=== PATIENT | female | born 1985 | race Hispanic/Latino ===

== ENCOUNTER 2017-11-14 16:22 | Inpatient (IN) | payer MEDICAID, SELFPAY ==
[2017-11-14] MEDS ORDERED: Docusate 100 MG CAP PO PRN (18:23)
[2017-11-14] MEDS ORDERED: Acetaminophen 325 MG TAB PO PRN (18:23)
[2017-11-14] MEDS ORDERED: Ondansetron ODT 4 MG TAB SL PRN (18:23)
[2017-11-14] MEDS ORDERED: Dextrose 5% in Water 1,000 ML IV PRN (18:23)
[2017-11-14] MEDS ORDERED: Dextrose 50% Abboject 50 ML SYRINGE SLOW IVP PRN (18:23)
[2017-11-14 19:02] LABS: Hemoglobin A1c 5.6 % (4.0-6.0)
[2017-11-14 19:20] LABS: ALT (SGPT) 35 U/L (8-55); AST (SGOT) 25 U/L (5-34); Albumin 3.1 g/dL (3.5-5.0); Alkaline Phosphatase 306 U/L (40-150); Anion Gap 9 mmol/L (10-20); BUN (Urea Nitrogen) 8 mg/dL (7.0-18.7); Bilirubin, Total 0.2 mg/dL (0.2-1.2); Calc. Creatinine Clearance 0 mL/min (70-130); Calcium 8.1 mg/dL (7.8-10.44); Carbon Dioxide 19 mmol/L (22-29); Chloride 111 mmol/L (98-107); Estimated GFR-MDRD Greater than 90; Globulin 3.2 g/dL (2.4-3.5); Glucose 92 mg/dL (70-105); Potassium 3.4 mmol/L (3.5-5.1); Protein, Total 6.3 g/dL (6.0-8.3); Sodium 136 mmol/L (136-145)
[2017-11-14 19:47] LABS: Band 8 % (5-11); Eosinophils 1 % (0-10); Hemoglobin 13.6 g/dL (12.0-16.0); Lymphocytes 4 % (21-51); MDiff Complete? YES; Mean Corpuscular HGB CONC 33.3 g/dL (32.0-36.0); Mean Corpuscular Hemoglobin 27.6 pg (27.0-31.0); Monocytes 2 % (0-10); Neutrophil 84 % (42-75); PLT Morphology Comment Appears Adequate; Platelet Count 272 thou/uL (130-400); Reactive Lymphocytes 1 % (0-10); Red Blood Cell (RBC) Count 4.92 mill/uL (4.20-5.40); White Blood Cell (WBC) Count 9.3 thou/uL (4.8-10.8)
--- NOTE | 2017-11-14 19:58 | PDOC.LDHP ---
Labor and Delivery H&P Chief complaint: other (Elevated glucoses at clinic) HPI: 32 yo @ 35.6 wks by LMP/17.2 wk US presents due to elevated BG's @ clinic and concern that she did not understand how to correctly use her glucometer at home. Patient states that she was pricking her finger and squeezing out the blood onto the strip but that the machine would never give her a reading. She did not know until her appointment this morning at [facility] that she was doing it incorrectly. Patient was thus sent over due to concern for uncontrolled gDM, further education, and possible medication titration. She states that she was diagnosed with gDM one month ago. Has not been started on any medication so far. Has not had gDM in any prior pregnancies. +FM. Denies any symptoms of diabetes such as increased urinary frequency, paresthesias, or vision changes. No ctx, VB, or LOF. Due date: 12/13/17 Dating criteria: last menstrual period (C/W 17.2 WK US) Grav: 3 Para: 2 OB History Details: Previous 2 pregnancies had no issues per patient and culminated in normal spontaneous vaginal deliveries w/o complications. Both births took place in [facility]. Both children are healthy without medical problems. Current complications: gestational diabetes Abnormal US findings: No Past Medical History: None Current medications: pre-rivka vitamins Previous surgical history: other Social history: none, other ( but lives in [facility]. No family history of diabetes, other chronic medical issues, or any genetic problems.) - Physical Exam Vital signs reviewed and normal: yes (WNL) General: NAD, resting Heart: RRR Lungs: nonlabored breathing Abdomen: NTTP Extremeties: normal range of motion - OB Labs Blood type: O RH: positive Antibody Screen: negative HIV: negative RPR: negative HEPSAg: negative 1 hour GCT: positive 3 hour GTT: positive GBS: unknown Urine drug screen: not done Rubella: immune - Plan -: 32 yo @ 35.6 wks by LMP/17.2 wk US w/: 1) Concern for uncontrolled gestational diabetes mellitus -Admit to -Will monitor qid (fasting + 2hr postprandial) blood glucoses carefully during in-patient setting for further White classification and decision regarding starting oral antihyperglycemics v. insulin -A1c pending -Carb-control diet -Baseline CBC, CMP, and UPC obtained -BPP and growth US ordered -Further education regarding disease process, diet/lifestyle changes, as well as use of glucose monitoring equipment at home 2) PTSIUP -Will contact [facility] tmrw to verify GBS status -H/o complete placenta previa with documented resolution on 3T US -NSTs qshift -Further decision on final delivery timing pending the outcome of this hospitalization and degree of patient compliance after discharge <Madi Arevalo - Last Filed: 11/14/17 19:54> <Christine Beltran - Last Filed: 11/14/17 20:57> Allergies/Adverse Reactions: Allergies Allergy/AdvReac Type Severity Reaction Status Date / Time No Known Allergies Allergy Unverified 11/14/17 20:10 Attending Addendum - Attending Addendum I personally evaluated the patient and discussed the management with Dr. Arevalo I agree with the History, Examination, Assessment and Plan documented above with any addition or exceptions noted below. 32 yo female at 35.6 wks by LMP/17.2 wk sono admitted for diabetes management in . 1. sIUP: IOB labs reviewed. Anatomy reviewed. Failed 1 hour and 3 hour gtt. 3T negative. Flu/Tdap given. Needs GBS. 2. A1GDM: Unsure if controlled on diet and exercise. Patient not monitoring glucose at home. Labs ordered. Growth and BPP/NST added. Will trend glucose readings. Discuss medication as needed. DM education ordered. 3. Placenta previa: Resolved. No vasa previa. Dispo: Obs. Monitor glucose. Evaluate fetus. Education. ABrayMD <Christine Beltran - Last Filed: 11/14/17 20:57>
--- NOTE | 2017-11-14 23:01 | ULT ---
LIMITED OBSTETRICAL ULTRASOUND BIOPHYSICAL PROFILE: Date: 11-14-17 History: Evaluate growth. Technique: Multiplanar grayscale sonographic imaging of the gravid uterus obtained. FINDINGS: A single intrauterine gestation is present demonstrating a vertex presentation. heart rate is 1 41 beats/minute. Region of kidneys and stomach appears grossly unremarkable. urinary blad kevin and umbilical cord appear within normal limits. anatomy cannot be fully evaluated on this e xamination secondary to gestational age. Placenta is located to the left, demonstrating no evidence f or previa or abruption. Amniotic fluid index is 7.9 cm. biometry: BPD 8.6 cm 34 weeks 5 days HC 32.0 cm 36 weeks 0 days AC 31.4 cm 35 weeks 2 days FL 6.6 cm 34 weeks 0 days Average age based on ultrasound is 35 weeks 1 days with an estimated date of delivery on 12-18-17. Estimated weight is 2569 grams +/- 380 grams. biophysical profile: tone, breathing, movement, and amniotic fluid was scored 2 out 2 by the lining machine tender . IMPRESSION: Single intrauterine gestation as detailed above. 05/03 biophysical profile. heart rate is 141 saurabh ts/minute. Amniotic fluid index is 7.9 cm. POS: [facility]
[2017-11-14 23:26] LABS: Creatinine, Urine 44.76 mg/dL (47-110); Protein, Urine Random Quant Less than 10 mg/dL
--- NOTE | 2017-11-15 09:01 | PDOC.FM ---
- Subjective Subjective: 32 yo @ 36 weeks here for GDM control. pt was reportedly using her glucometer incorrectly. Since she has been here her blood glucose has been excellent on a consistent carb diet. Shed enies headache, cp, sob, nvdc and abdominal pain. She states she has been compliant with her diet at home but was having difficulties with her glucometer. She reports she is now able to use her glucometer. - Objective Vital Signs & Weight: Vital Signs (12 hours) Temp Pulse Resp BP 11/15/17 08:19 98.8 F 80 20 90/54 L 11/15/17 06:00 98.6 F 79 18 92/53 L Result Diagrams: 11/14/17 18:41 11/14/17 18:41 <Filemon Castle - Last Filed: 11/15/17 09:01> - Objective Vital Signs & Weight: Vital Signs (12 hours) Temp Pulse Resp BP 11/16/17 08:00 98.7 F 78 18 11/16/17 07:58 98.7 F 78 18 91/63 Weight Weight 138 g Result Diagrams: 11/14/17 18:41 11/14/17 18:41 <Kamilah Avila - Last Filed: 11/16/17 12:59> Phys Exam - Physical Examination Constitutional: NAD HEENT: PERRLA, sclera anicteric Neck: no JVD Respiratory: no wheezing, no rales, no rhonchi, clear to auscultation bilateral Cardiovascular: RRR, no significant murmur, no rub Gastrointestinal: soft, non-tender, no distention, positive bowel sounds gravid Musculoskeletal: no edema, pulses present Neurological: non-focal, moves all 4 limbs Skin: no rash <Filemon Castle - Last Filed: 11/15/17 09:01> Dx/Plan (1) Gestational diabetes mellitus (GDM) Code(s): O24.419 - GESTATIONAL DIABETES MELLITUS IN , UNSP CONTROL Status: Acute - Plan Plan: pt educated on use of glucometer and states she has been compliant with diet at home continue accuchecks achs and post pradial consistent carb diet glucose checks thus far ok, will likely be ok with diet control continue to monitor throughout day <Filemon Castle - Last Filed: 11/15/17 09:01> Attending Addendum - Attending Addendum Date/Time: 11/16/17 1257 I personally evaluated the patient and discussed the management with Dr. Castle on 11/15/17 I agree with the History, Examination, Assessment and Plan documented above with any addition or exceptions noted below- Patient without complaints. (+) FM Afebrile VSS. A/P: 1) GDM- continue to monitor BG levels; no need to start medications yet. Diabetic education and nutrition consult. Normal growth on USG and BPP 05/03. <Kamilah Avila - Last Filed: 11/16/17 12:59>
[2017-11-15] MEDS: Prenatal Vitamin 1 TAB PO SCH (09:24)
[2017-11-16 07:59] VITALS: BP 91/63; TEMP 98.7
[2017-11-16] MEDS: Prenatal Vitamin 1 TAB PO SCH (08:54)
--- NOTE | 2017-11-16 11:48 | PDOC.FM ---
- Subjective Subjective: 32 yo F @ 36.1 and complicated by gdm here for bs management. Hospital day 2. BS fasting has been well controlled, post pradials have been elevated. NSTs all normal. Pt denies headache, cp, sob, nvdc. She has been educated on proper use of glucometer and has shown competence with its use. All questions answered. - Objective Vital Signs & Weight: Vital Signs (12 hours) Temp Pulse Resp BP 11/16/17 08:00 98.7 F 78 18 11/16/17 07:58 98.7 F 78 18 91/63 Weight Weight 138 g Result Diagrams: 11/14/17 18:41 11/14/17 18:41 <Filemon Castle - Last Filed: 11/16/17 11:46> - Objective Vital Signs & Weight: Vital Signs (12 hours) Temp Pulse Resp BP 11/16/17 08:00 98.7 F 78 18 11/16/17 07:58 98.7 F 78 18 91/63 Weight Weight 138 g Result Diagrams: 11/14/17 18:41 11/14/17 18:41 <Kamilah Avila - Last Filed: 11/16/17 12:54> Phys Exam - Physical Examination Constitutional: NAD HEENT: PERRLA, sclera anicteric Neck: no JVD Respiratory: no wheezing, no rales, no rhonchi, clear to auscultation bilateral Cardiovascular: RRR, no significant murmur, no rub Gastrointestinal: soft, non-tender, no distention, positive bowel sounds gravid Musculoskeletal: no edema, pulses present Neurological: non-focal, moves all 4 limbs Skin: no rash, cap refill <2 seconds <Filemon Castle - Last Filed: 11/16/17 11:46> Dx/Plan (1) Gestational diabetes mellitus (GDM) Code(s): O24.419 - GESTATIONAL DIABETES MELLITUS IN , UNSP CONTROL Status: Acute - Plan Plan: post prandial bs elevated. Pt appears to be diet controllede, when compliant. She has been instructed on proper use of glucometer and all questions have been answered. If afternoon bs remain at or slightly above normal we will plan to discharge with instruction to f/u at [facility] by tuesday. Will consider metformin if bs persistently elevated throughout day. Nutrition has met with pt and she has been educated on proper diet/disease management. <Filemon Castle - Last Filed: 11/16/17 11:46> Attending Addendum - Attending Addendum Date/Time: 11/16/17 6521 I personally evaluated the patient and discussed the management with Dr. Castle I agree with the History, Examination, Assessment and Plan documented above with any addition or exceptions noted below- Patient without complaints. Understands and has demonstrated use of glucometer. Afebrile VSS A/P: 1) IUP @ 36.1 weeks with GDM- continue diabetic education; Post-prandial glucoses 2/4 elevated; [place] at goal; continue to monitor; may need to start oral medication. <Kamilah Avila - Last Filed: 11/16/17 12:54>
--- NOTE | 2017-11-17 14:33 | DIS-2 ---
DATE OF SERVICE: 11/16/2017 LOCATION: [facility] in [place], [place]. DATE OF ADMISSION: 11/14/2017 DATE OF DISCHARGE: 11/16/2017 RESIDENT PHYSICIAN: Filemon Castle DO ADMITTING ATTENDING: Christine Beltran MD DISCHARGE ATTENDING: Kamilah Avila MD CONSULTS: None. PROCEDURE: Biophysical profile was done on 11/14/2017, which showed a single intrauterine gestation at 8/8 biophysical profile. heart rate was measured to be 141. Amniotic fluid index is 7.9. PRIMARY DIAGNOSIS: Gestational diabetes mellitus. SECONDARY DIAGNOSIS: None. DISCHARGE MEDICATIONS: 1. Metformin 500 mg p.o. b.i.d. 2. vitamin 1 tab p.o. daily. DISCONTINUED MEDICATIONS: None. HISTORY OF PRESENT ILLNESS AND HOSPITAL COURSE: The patient is a 32-year-old female who is a -0 -0-2 at 35.6 weeks by LMP, who came in for elevated blood sugars found at her Clinic and the re was concern that she did not understand how to properly use her glucometer at home. As such, she was admitted to the floor for observation and Accu-Cheks which were found to be highest of 215 two hours postprandial in addition to 157 two hours postprandial and 138 two hours postprandial. Additionally, she had a.m. blood glucose levels of 104, 87, 98, 79, and 87. Given the consistently elevated postprandials as well as occasional elevated premeal glucose checks, a decision was made to place the patient on metformin. Throughout her stay, the patient was instructed on proper use of gl ucometer and demonstrated competence and using the device prior to being discharged to home. She was given diabetic dietitian counseling and instructed to adhere strictly to her diabetic diet for the r emainder of her . Overall, the patient had an uncomplicated hospital course and was discharged to home in stable condit ion. DISPOSITION: The patient left the hospital in stable condition. DISCHARGE INSTRUCTIONS: 1. Location: Home. 2. Diet: Consistent carbohydrates. 3. Activity: Ad christi. 4. Followup: Follow up with obstetrics provider in 7-10 days following discharge.
== END 2017-11-16 16:50 | disposition home or self-care (01) | DRG 781 ==
LOC: 3SW 16:22
PROVIDERS: ADMIT Family Medicine; ATTEND Family Medicine
DX: O24.419 Gestational diabetes mellitus in pregnancy, unspecified control (principal); O44.03 Complete placenta previa NOS or without hemorrhage, third trimester; Z3A.36 36 weeks gestation of pregnancy
CPT/HCPCS: 36415; 36416; 59025; 76815; 76819; 80053; 82570; 83036; 84156; 85007; 85027

== ENCOUNTER 2017-12-06 20:00 | Inpatient (IN) | payer MEDICAID, OTHER, SELFPAY ==
[2017-12-06 21:00] VITALS: BMI 30.9
[2017-12-06] MEDS: Lactated Ringer's 1,000 ML IV SCH (21:00)
--- NOTE | 2017-12-06 21:50 | PDOC.LDHP ---
Labor and Delivery H&P Chief complaint: scheduled induction HPI: 32 yo @ 39.0 wks by 17.2 wk sono c/w LMP presents for IOL 2/2 A2GDM, uncontrolled, with hx of macrosomia (13 pounds) in first baby. Denies contractions, vaginal bleeding, fluid loss, vaginal discharge. Current gestational age (weeks): 39 (39.0 ) Due date: 12/13/17 Dating criteria: last menstrual period, second trimester ultrasound (17.2) Grav: 3 Para: 2 OB History Details: 10/23/2006 40wks 8 lbs vaginal delivery in [facility] 01/25/2002 40 wks 13lbs vaginal delivery in [facility] Current complications: gestational diabetes (A2 uncontrolled) Abnormal US findings: No Past Medical History: A2GDM Current medications: pre-rivka vitamins, other (metformin 500 BID) Previous surgical history: none Social history: none - Physical Exam Vital signs reviewed and normal: yes General: NAD, resting Heart: RRR Lungs: CTAB Abdomen: NTTP Extremeties: no edema FHT: category 1 - Vaginal Exam cm dilated: 3 Effacement: 50% Station: -3 - OB Labs Blood type: O RH: positive Antibody Screen: negative HIV: negative RPR: negative HEPSAg: negative 1 hour GCT: positive 3 hour GTT: positive GBS: negative Rubella: non-immune - Assessment L&D Assessment: medically indicated induction - Plan Plan: admit to L&D -: 32 yo @ 39.0 wks by 17.2 wk sono c/w LMP presents for IOL 2/2 A2GDM, uncontrolled, with hx of macrosomia (13 pounds) in first baby. 1.)sIUP- @ 39wks today here for IOL 2/2 A2GDM, uncontrolled. Not currently in labor. Holder 6. Plan for pitocin induction tonight. LR @120ml/hr. pp rubella vaccine needed. 2.)A2GDM- accuchecks now and q4h, continue metformen 500mg BID. 3.)Hx of Macrosomia in first baby <Veronique Christian - Last Filed: 12/06/17 22:49> <Rebekah Vogt - Last Filed: 12/06/17 23:49> Allergies/Adverse Reactions: Allergies Allergy/AdvReac Type Severity Reaction Status Date / Time No Known Allergies Allergy Verified 12/06/17 21:18 Attending Addendum - Attending Addendum Date/Time: 12/06/17 1232 I personally evaluated the patient and discussed the management with Dr. Gino Bynum. I agree with the History, Examination, Assessment and Plan documented above with any addition or exceptions noted below. Proceed with pit induction of with A2GDM. GBS neg. <Rebekah Vogt - Last Filed: 12/06/17 23:49>
[2017-12-06] MEDS ORDERED: Lidocaine 1% (PF) 30 ML VIAL SC PRN (22:04)
[2017-12-06] MEDS ORDERED: Ondansetron HCl/PF 4 MG/2 ML Vial IVP PRN (22:04)
[2017-12-06] MEDS ORDERED: Ibuprofen 800 MG TAB PO PRN (22:04)
[2017-12-06] MEDS ORDERED: Promethazine HCl 25 MG/ML VIAL IM PRN (22:04)
[2017-12-06] MEDS ORDERED: Misoprostol 200 MCG TAB PR PRN (22:30)
[2017-12-06] MEDS ORDERED: LR 500 ML/Oxytocin 10 units 500 ML IV SCH (22:30)
[2017-12-06 22:31] LABS: Hemoglobin 14.7 g/dL (12.0-16.0); Mean Corpuscular HGB CONC 35.1 g/dL (32.0-36.0); Mean Corpuscular Hemoglobin 28.3 pg (27.0-31.0); Mean Corpuscular Volume 80.7 fl (81.0-99.0); Mean Platelet Volume 8.7 fL (7.4-10.4); Platelet Count 263 thou/uL (130-400); Red Blood Cell (RBC) Count 5.21 mill/uL (4.20-5.40); White Blood Cell (WBC) Count 8.5 thou/uL (4.8-10.8)
[2017-12-06] MEDS ORDERED: metFORMIN 500 MG TAB PO SCH (22:45)
[2017-12-06 23:09] LABS: Glucose Accucheck Confirmation 92 mg/dl (70-105)
--- NOTE | 2017-12-07 00:53 | PDOC.LDPN ---
Labor & Delivery Progress Note - Subjective Subjective: painful contractions (32 yo @ 39 wks by 17.2 wk sono c/w LMP presents for IOL 2/2 A2DM) - Objective Vital signs reviewed and normal: yes General: breathing through contractions Uterine fundus: non tender Dilation: 4 Effacement: 75% Station: -3 FHT: category 1 [place] contractions every: 2-3 minutes Other exam findings: bloody show - Assessment (1) Intrauterine Code(s): Z34.90 - ENCNTR FOR SUPRVSN OF NORMAL , UNSP, UNSP TRIMESTER Current Visit: Yes Status: Acute (2) Encounter for induction of labor Code(s): Z34.90 - ENCNTR FOR SUPRVSN OF NORMAL , UNSP, UNSP TRIMESTER Current Visit: Yes Status: Acute (3) Gestational diabetes mellitus (GDM) Code(s): O24.419 - GESTATIONAL DIABETES MELLITUS IN , UNSP CONTROL Current Visit: No Status: Acute (4) Rubella non-immune status, antepartum Code(s): O99.89 - OTH DISEASES AND CONDITIONS COMPL PREG/CHLDBRTH; Z28.3 - UNDERIMMUNIZATION STATUS Current Visit: Yes Status: Acute Plan: continue plan of care, pitocin for augmentation -: 32 yo @ 39 wks by 17.2 wk sono c/w LMP presents for IOL 2/2 A2GDM 1.)sIUP-continue IOL with pitocin, currently at 6. Continue labor checks q2h. Pt does not desire an epidural. 2.)[id number] metformen 500mg BID and accuchecks q4h. Initial accucheck: 92. 3.)Rubella nonimmune-pt will need vaccine after delivery
[2017-12-07 01:28] LABS: Syphilis Antibody Nonreactive (Nonreactive); Syphilis Antibody Index 0.04 S/CO (<1.00 Non-Reactive)
[2017-12-07 01:29] LABS: HBSAg Index 0.21 S/CO (0-0.99); HIV (1/2) Antibody/Antigen Non-Reactive (NonReactive); HIV 1/2 INDEX 0.22 S/CO (<1.00); Hep B Surf Ag Non-Reactive S/CO (NonReactive)
--- NOTE | 2017-12-07 03:25 | PDOC.LDPN ---
Labor & Delivery Progress Note - Subjective Subjective: painful contractions (32 yo @ 39 wks by 17.2 wk sono c/w LMP presents for IOL 2/2 A2DM) - Objective Vital signs reviewed and normal: yes General: NAD, resting, breathing through contractions Uterine fundus: non tender Dilation: 4 Effacement: 75% Station: -2 FHT: category 2 (minimal variability) - Assessment (1) Intrauterine Code(s): Z34.90 - ENCNTR FOR SUPRVSN OF NORMAL , UNSP, UNSP TRIMESTER Current Visit: Yes Status: Acute (2) Encounter for induction of labor Code(s): Z34.90 - ENCNTR FOR SUPRVSN OF NORMAL , UNSP, UNSP TRIMESTER Current Visit: Yes Status: Acute (3) Gestational diabetes mellitus (GDM) Code(s): O24.419 - GESTATIONAL DIABETES MELLITUS IN , UNSP CONTROL Current Visit: No Status: Acute (4) Rubella non-immune status, antepartum Code(s): O99.89 - OTH DISEASES AND CONDITIONS COMPL PREG/CHLDBRTH; Z28.3 - UNDERIMMUNIZATION STATUS Current Visit: Yes Status: Acute -: 1.)sIUP-continue IOL with pitocin, currently at 8. Continue labor checks q2h. Pt does not desire an epidural. 2.)[id number] metformen 500mg BID and accuchecks q4h. Initial accucheck: 92. 3.)Rubella nonimmune-pt will need vaccine after delivery
--- NOTE | 2017-12-07 05:53 | PDOC.LDPN ---
Labor & Delivery Progress Note - Subjective Subjective: painful contractions (32 yo @ 39 wks by 17.2 wk sono c/w LMP presents for IOL 2/2 A2DM) - Objective Vital signs reviewed and normal: yes General: resting, breathing through contractions Uterine fundus: non tender Dilation: 5 Effacement: 75% Station: -2 FHT: category 1 [place] contractions every: 3 minutes - Assessment (1) Intrauterine Code(s): Z34.90 - ENCNTR FOR SUPRVSN OF NORMAL , UNSP, UNSP TRIMESTER Current Visit: Yes Status: Acute (2) Encounter for induction of labor Code(s): Z34.90 - ENCNTR FOR SUPRVSN OF NORMAL , UNSP, UNSP TRIMESTER Current Visit: Yes Status: Acute (3) Gestational diabetes mellitus (GDM) Code(s): O24.419 - GESTATIONAL DIABETES MELLITUS IN , UNSP CONTROL Current Visit: No Status: Acute (4) Rubella non-immune status, antepartum Code(s): O99.89 - OTH DISEASES AND CONDITIONS COMPL PREG/CHLDBRTH; Z28.3 - UNDERIMMUNIZATION STATUS Current Visit: Yes Status: Acute -: 1.)sIUP-continue IOL with pitocin, currently at 14. Continue labor checks q2h. Pt does not desire an epidural. 2.)[id number] metformen 500mg BID and accuchecks q4h. Initial accucheck: 92. 3.)Rubella nonimmune-pt will need vaccine after delivery
[2017-12-07] MEDS: Lactated Ringer's 1,000 ML IV SCH (07:04)
[2017-12-07] MEDS ORDERED: metFORMIN 500 MG TAB PO SCH (08:00)
--- NOTE | 2017-12-07 08:40 | PDOC.LDPN ---
Labor & Delivery Progress Note - Subjective Subjective: painful contractions - Objective Vital signs reviewed and normal: yes General: NAD, breathing through contractions Uterine fundus: non tender SVE: 8:30 Dilation: 5 Effacement: 75% Station: -1 FHT: category 1, variability present [place] contractions every: 2-3 AROM: bloody fluid IUPC placed: yes FSE placed: yes - Assessment (1) Intrauterine Code(s): Z34.90 - ENCNTR FOR SUPRVSN OF NORMAL , UNSP, UNSP TRIMESTER Current Visit: Yes Status: Acute (2) Gestational diabetes mellitus (GDM) Code(s): O24.419 - GESTATIONAL DIABETES MELLITUS IN , UNSP CONTROL Current Visit: No Status: Acute (3) Rubella non-immune status, antepartum Code(s): O99.89 - OTH DISEASES AND CONDITIONS COMPL PREG/CHLDBRTH; Z28.3 - UNDERIMMUNIZATION STATUS Current Visit: Yes Status: Acute Plan: pitocin for augmentation -: 32 yo @ 39.1 weeks here for IOL due to uncontrolled GDM A2 1.)sIUP-continue IOL with pitocin, currently at 18. Continue labor checks q2h. Pt does not desire an epidural. -assited rupture of membranes using FSE. FSE placed. -IUPC placed to montior ctx more adequately. -FHR 140. category 1 strip. will continue monitoring. 2.)[id number] being held as pt not eating and last sugar was 70. Will check another sugar in a few hours and continue accuchecks q4h. Initial accucheck: 92. 3.)Rubella nonimmune-pt will need vaccine after delivery <Francisco Yip - Last Filed: 12/07/17 08:41> Attending Addendum - Attending Addendum Date/Time: 12/07/17 1136 I personally evaluated the patient and discussed the management with Dr. Yip. I agree with the History, Examination, Assessment and Plan documented above with any addition or exceptions noted below. <Leti Collier - Last Filed: 12/07/17 11:36>
[2017-12-07] MEDS ORDERED: Bupivacaine 0.5% 20 ML, Fentanyl 400 MCG in Sodium Chloride 0.9% 72 ML EPIDURAL SCH (10:00)
[2017-12-07] MEDS ORDERED: DISCONTINUE ALL PREVIOUS NARCOTICS FS SCH (10:00)
[2017-12-07] MEDS: LR / Pitocin 40 units/1000 ml 1,000 ML IV PRN ×2 (11:14→13:10)
[2017-12-07] MEDS ORDERED: Misoprostol 200 MCG TAB ONE (11:18)
[2017-12-07] MEDS: Prenatal Vitamin 1 TAB PO SCH (11:41)
[2017-12-07] MEDS ORDERED: Acetaminophen 500 MG TAB PO SCH (11:45)
[2017-12-07] MEDS ORDERED: Bisacodyl 10 MG SUPP PR PRN (13:14)
[2017-12-07] MEDS ORDERED: Milk Of Magnesia 30 ML UDCUP PO PRN (13:14)
[2017-12-07] MEDS ORDERED: Lanolin Ointment 7 GM TUBE TOP PRN (13:14)
[2017-12-07] MEDS ORDERED: LR / Pitocin 40 units/1000 ml 1,000 ML IV SCH (13:14)
[2017-12-07] MEDS ORDERED: diphenhydrAMINE 25 MG CAP PO PRN (13:14)
[2017-12-07] MEDS ORDERED: Preparation H Ointment 28 GM TUBE PR PRN (13:14)
[2017-12-07] MEDS: Ibuprofen 800 MG TAB PO SCH ×2 (13:43→21:07)
[2017-12-07] MEDS ORDERED: Measles/Mumps/Rubella 10 MCG/0.5 ML VIAL SC ONE (16:00)
[2017-12-07] MEDS ORDERED: Adacel (T-DAP) 0.5 ML VIAL IM ONE (16:00)
[2017-12-07] MEDS: Ferrous Sulfate 325 MG TAB PO SCH (18:07)
[2017-12-07] MEDS: Docusate Calcium (SURFAK) 240 MG CAP PO SCH (21:07)
--- NOTE | 2017-12-08 01:35 | DN-2 ---
DATE OF ADMISSION: 12/06/2017 DATE OF DELIVERY: 12/07/2017. DELIVERY PHYSICIANS: Dr. Francisco Yip, PGY-1, Dr. Stockton, PGY-3. ATTENDING PHYSICIAN: Dr. Collier PROCEDURE: Spontaneous vaginal delivery. ANESTHESIA: Pudendal block. ESTIMATED BLOOD LOSS: 400 mL POSTOPERATIVE DIAGNOSES: 1. Term intrauterine , for induction of labor. 2. History of uncontrolled gestational diabetes A2. 3. Unvaccinated rubella. POSTOPERATIVE DIAGNOSES: 1. Term intrauterine , delivered. 2. Uncontrolled gestational diabetes A2. 3. Unvaccinated rubella. INDICATIONS: A 32-year-old female G3, P2-0-0-2 at 39 and 1 weeks who delivered a viable male infant at 11:13. DELIVERY NOTE: Following an uneventful antepartum course, a vigorous male was delivered over an intact perineum in the occiput anterior position. The anterior shoulder was delivered and a tight nuchal cord x2 was noted. It could not be reduced so was clamped x 2 and cut and the body of baby was delivered. The head was held down and the mouth and nares were bulb suctioned. Cord blood was collected. Placenta delivered intact with a 3-vessel cord noted. Fundal massage was performed and the fundus was firm. Cervix and vagina were inspected and found to be free of lacerations. Infant went to the nursery in good condition for routine care. Apgars were 8 and 9 at 1 and 5 minutes, respectively. The patient tolerated delivery well and went to after routine recovery/care. [facility]
[2017-12-08] MEDS: Ibuprofen 800 MG TAB PO SCH ×3 (06:15→21:26)
--- NOTE | 2017-12-08 08:05 | PDOC.PP ---
Post Progress Note Post Day #: 1 Subjective: Pt reports doing well. resting at this time. Denies any pain this morning. No acute events overnight. No concerns at this time. Tolerating PO and has been up moving around. Reports passing gas. PO intake tolerated: yes Flatus: yes Ambulation: yes Vital Signs (12 hours) Temp Pulse Resp BP 12/08/17 03:47 98.3 F 73 18 109/74 12/08/17 00:40 97.7 F 67 18 109/60 Weight Weight 64.864 kg - Physical Examination General: NAD Cardiovascular: no m/r/g, RRR Respiratory: clear to auscultation bilaterally, non-labored breathing Abdominal: + bowel sounds, lochia (Reports light bleeding), no distention, appropriately TTP Fundus firm & at: 2 fingers below umbilicus Extremities: negative homans (B) Skin: no rash Neurological: no gross focal deficits Psychiatric: A&Ox3, normal affect Result Diagrams: 12/06/17 21:15 Additional Labs: Post Labs Blood Type O POSITIVE 12/06/17 21:15 Hep Bs Antigen Non-Reactive S/CO (NonReactive) 12/06/17 21:15 (1) Gestational diabetes mellitus (GDM) Code(s): O24.419 - GESTATIONAL DIABETES MELLITUS IN , UNSP CONTROL Status: Acute (2) Rubella non-immune status, antepartum Code(s): O99.89 - OTH DISEASES AND CONDITIONS COMPL PREG/CHLDBRTH; Z28.3 - UNDERIMMUNIZATION STATUS Status: Acute (3) Term delivered Code(s): O80 - ENCOUNTER FOR FULL-TERM UNCOMPLICATED DELIVERY Status: Acute - Assessment/Plan 32 yo -->3 delivered a male via @ 11:13 on 12/07/17. -Routine Care -Continue to monitor pain and tx accordinly. Denies any pain at this time. -Normal lochia. -Vital signs stable continue to monitor. GDM A2 -Continue to monitor blood glucose ACHS. Blood sugars stable. -Diabetic Diet at this time. -Will need diabetes testing at 6 week f/u Non immune status to Rubella -Will vaccinate with MMR. <Francisco Yip - Last Filed: 12/08/17 08:04> Vital Signs (12 hours) Temp Pulse Resp BP 12/08/17 08:00 98.4 F 63 18 101/57 L 12/08/17 03:47 98.3 F 73 18 109/74 12/08/17 00:40 97.7 F 67 18 109/60 Weight Weight 64.864 kg Result Diagrams: 12/06/17 21:15 Additional Labs: Post Labs Blood Type O POSITIVE 12/06/17 21:15 Hep Bs Antigen Non-Reactive S/CO (NonReactive) 12/06/17 21:15 <Leti Collier - Last Filed: 12/08/17 11:26> Attending Addendum - Attending Addendum Date/Time: 12/08/17 1125 I personally evaluated the patient and discussed the management with Radha Stockton and Phi. I agree with the History, Examination, Assessment and Plan documented above with any addition or exceptions noted below. <Leti Collier - Last Filed: 12/08/17 11:26>
[2017-12-08] MEDS: Docusate Calcium (SURFAK) 240 MG CAP PO SCH ×2 (09:00→21:26)
[2017-12-08] MEDS: Prenatal Vitamin 1 TAB PO SCH (09:00)
[2017-12-08] MEDS: Ferrous Sulfate 325 MG TAB PO SCH ×2 (09:00→18:00)
[2017-12-09] MEDS: Ibuprofen 800 MG TAB PO SCH (05:39)
[2017-12-09] MEDS ORDERED: Ibuprofen 800 MG TAB PO PRN (08:13)
--- NOTE | 2017-12-09 08:15 | PDOC.PP ---
Post Progress Note Post Day #: 2 Subjective: Pt reports doing well this morning. Resting in bed at this time. Denies any acute events overnight. Denies fever chills. Reports having little pain. Reports normal lochia. Pt denies any swelling. Denies any headaches, lightheadness. No other concerns at this time. PO intake tolerated: yes Flatus: yes Ambulation: yes Vital Signs (12 hours) Temp Pulse Resp BP 12/08/17 20:15 98.4 F 65 16 134/70 Weight Weight 64.864 kg - Physical Examination General: NAD Cardiovascular: no m/r/g, RRR Respiratory: clear to auscultation bilaterally, non-labored breathing Abdominal: + bowel sounds, lochia, no distention, appropriately TTP Fundus firm & at: 2-3 fingers below umbilicus Extremities: negative homans (B) Skin: no rash Perineum: mildly swollen. No excessive trauma noted Neurological: no gross focal deficits Psychiatric: A&Ox3, normal affect Result Diagrams: 12/06/17 21:15 Additional Labs: Post Labs Blood Type O POSITIVE 12/06/17 21:15 Hep Bs Antigen Non-Reactive S/CO (NonReactive) 12/06/17 21:15 (1) Gestational diabetes mellitus (GDM) Code(s): O24.419 - GESTATIONAL DIABETES MELLITUS IN , UNSP CONTROL Status: Acute (2) Rubella non-immune status, antepartum Code(s): O99.89 - OTH DISEASES AND CONDITIONS COMPL PREG/CHLDBRTH; Z28.3 - UNDERIMMUNIZATION STATUS Status: Acute (3) Term delivered Code(s): O80 - ENCOUNTER FOR FULL-TERM UNCOMPLICATED DELIVERY Status: Acute - Assessment/Plan 32 yo -->3 delivered a male via @ 11:13 on 12/07/17. -Routine Care -Continue to monitor pain and tx accordinly. Reports having little pain. -Normal lochia. -Vital signs stable continue to monitor. -Will discharge home later today. May need Bed and Breakfast as was in the NICU. GDM A2 -Continue to monitor blood glucose ACHS. Blood sugars stable. -Diabetic Diet at this time. -Will need diabetes testing at 6 week f/u Non immune status to Rubella -Will vaccinate with MMR. <Francisco Yip - Last Filed: 12/09/17 08:13> Weight Weight 64.864 kg Result Diagrams: 12/06/17 21:15 Additional Labs: Post Labs Blood Type O POSITIVE 12/06/17 21:15 Hep Bs Antigen Non-Reactive S/CO (NonReactive) 12/06/17 21:15 <Leti Collier - Last Filed: 12/10/17 11:50> Attending Addendum - Attending Addendum Date/Time: 12/10/17 1149 I personally evaluated the patient and discussed the management with Drs. Stockton and Phi I agree with the History, Examination, Assessment and Plan documented above with any addition or exceptions noted below. PPD #2. Stable for d/c to home <Leti Collier - Last Filed: 12/10/17 11:50>
[2017-12-09 09:06] VITALS: BP 114/61; TEMP 98.9
[2017-12-09] MEDS: Ferrous Sulfate 325 MG TAB PO SCH (09:14)
[2017-12-09] MEDS: Docusate Calcium (SURFAK) 240 MG CAP PO SCH (09:26)
[2017-12-09] MEDS: Prenatal Vitamin 1 TAB PO SCH (09:26)
== END 2017-12-09 18:23 | disposition home or self-care (01) | DRG 775 ==
LOC: L&D 20:11 → 3SW 12-07 13:34
PROVIDERS: ADMIT Family Medicine; ATTEND Family Medicine
PROC: 10E0XZZ Delivery of Products of Conception, External Approach (ICD-10-PCS; principal; 2017-12-07)
PROC: 3E033VJ Introduction of Other Hormone into Peripheral Vein, Percutaneous Approach (ICD-10-PCS; 2017-12-07)
PROC: 10907ZC Drainage of Amniotic Fluid, Therapeutic from Products of Conception, Via Natural or Artificial Opening (ICD-10-PCS; 2017-12-07)
PROC: 10H07YZ Insertion of Other Device into Products of Conception, Via Natural or Artificial Opening (ICD-10-PCS; 2017-12-07)
PROC: 3E0234Z Introduction of Serum, Toxoid and Vaccine into Muscle, Percutaneous Approach (ICD-10-PCS; 2017-12-09)
DX: O24.429 Gestational diabetes mellitus in childbirth, unspecified control (principal); O69.81X0 Labor and delivery complicated by cord around neck, without compression, not applicable or unspecified; O99.89 Other specified diseases and conditions complicating pregnancy, childbirth and the puerperium; Z28.3 Underimmunization status; Z37.0 Single live birth; Z3A.39 39 weeks gestation of pregnancy; Z23 Encounter for immunization
CPT/HCPCS: 36415; 36416; 82947; 85027; 86780; 87340; 87389; 90707; J0595; J2001; J3010; J3490; J7050; J7120

== ENCOUNTER 2018-02-23 16:51 | Emergency (ER) | payer MEDICAID ==
[2018-02-23] MEDS ORDERED: diphenhydrAMINE 50 MG/ML VIAL ONE (17:40)
[2018-02-23] MEDS ORDERED: Metoclopramide HCl 10 MG/2 ML VIAL ONE (17:40)
[2018-02-23 17:50] LABS: Pregnancy Test - Urine (BHCG) Negative (Negative); Pregu Control Background? CLEAR/WHITE (CLR/WHITE); Pregu Control Bar Appear? YES (CONTROL BAR); Specific Gravity 1.026 (1.002-1.036)
[2018-02-23] MEDS ORDERED: Lidocaine Viscous Sol 2% 15 ml UD Cup ONE (17:53)
[2018-02-23] MEDS ORDERED: Mag-Al 1200 mg/1200 mg/30 ML UDCUP ONE (17:53)
[2018-02-23 18:02] LABS: Bilirubin Negative (Negative); Blood, Urine Negative (Negative); Clarity CLEAR (Clear); Glucose, Urine (Dipstick) Negative (Negative); Leukocyte Trace (Negative); Nitrite Negative (Negative); Protein, Urine (Dipstick) Trace mg/dL (Neg-Trace); Specific Gravity, Urine 1.026 (1.002-1.036); pH, Urine 7.5 (5.0-9.0)
[2018-02-23 18:05] LABS: Bacteria/HPF None Seen HPF (None Seen); Hyaline Casts/LPF 4-6 HYALINE CAST LPF (0-3 Hyaline); Pathc Cast-AUWi Flag 0.58 (0-2.49); Squamous Epithelial 0-3 HPF (0-3)
--- NOTE | 2018-02-23 19:26 | CT ---
CT OF THE BRAIN WITHOUT CONTRAST 02/23/18 COMPARISON: None. HISTORY: Headache that started one week ago. TECHNIQUE: Multiple contiguous axial images were obtained in a CT of the brain without contrast. FINDINGS: The brain is normal in morphology and attenuation without focal lesions or confluent areas of infarct ion. There is no evidence of hydrocephalus, intracranial hemorrhage or extra-axial fluid collection. The calvarium and overlying soft tissues are unremarkable. The visualized paranasal sinuses and masto id air cells are well aerated. IMPRESSION: No evidence of acute intracranial abnormality. POS: [facility]
[2018-02-23] MEDS ORDERED: Ketorolac Tromethamine 30 MG/ML VIAL ONE (19:59)
== END 2018-02-23 20:41 | disposition home or self-care (01) ==
LOC: ERS 16:51
DX: R51 Headache (principal)
CPT/HCPCS: 70450; 81003; 81015; 81025; 87086; 96361; 96374; 96375; J1200; J1885; J2765

== ENCOUNTER 2020-12-26 21:13 | Emergency (ER) | payer SELFPAY ==
[2020-12-26] MEDS ORDERED: Diazepam 5 MG TAB ONE (21:51)
[2020-12-26 22:03] LABS: #Lymphocytes 2.4 thou/uL (1.20-3.40); #Monocytes 0.4 thou/uL (0.11-0.59); #Neutrophils 7.1 thou/uL (1.40-6.50); %Basophils 0.4 % (0.0-1.0); %Eosinophils 0.3 % (0.0-10.0); %Lymphocytes 24.1 % (21.0-51.0); %Monocytes 3.8 % (0.0-10.0); %Neutrophils 71.3 % (42.0-75.0); Hemoglobin 14.2 g/dL (12.0-16.0); Mean Corpuscular HGB CONC 34.5 g/dL (32.0-36.0); Mean Corpuscular Volume 81.1 fL (78.0-98.0); Mean Platelet Volume 7.5 fL (7.4-10.4); Platelet Count 316 thou/uL (130-400); RBC Distribution Width 12.1 % (11.5-14.5); Red Blood Cell (RBC) Count 5.07 mill/uL (4.20-5.40); White Blood Cell (WBC) Count 9.9 thou/uL (4.8-10.8)
[2020-12-26 22:24] LABS: ALT (SGPT) 57 U/L (8-55); AST (SGOT) 31 U/L (5-34); Albumin 4.7 g/dL (3.5-5.0); Alkaline Phosphatase 123 U/L (40-110); Anion Gap 13 mmol/L (10-20); BUN (Urea Nitrogen) 7 mg/dL (7.0-18.7); Bilirubin, Total 0.2 mg/dL (0.2-1.2); Calc. Creatinine Clearance 0 mL/min (70-130); Calcium 9.1 mg/dL (7.8-10.44); Carbon Dioxide 23 mmol/L (22-29); Chloride 107 mmol/L (98-107); Globulin 3.5 g/dL (2.4-3.5); Glucose 188 mg/dL (70-105); Potassium 3.5 mmol/L (3.5-5.1); Protein, Total 8.2 g/dL (6.0-8.3); Sodium 139 mmol/L (136-145)
== END 2020-12-26 23:11 | disposition home or self-care (01) ==
LOC: ERS 21:13
DX: R42 Dizziness and giddiness (principal); E11.9 Type 2 diabetes mellitus without complications; I10 Essential (primary) hypertension; Z79.84 Long term (current) use of oral hypoglycemic drugs; Z79.899 Other long term (current) drug therapy
CPT/HCPCS: 70450; 71045; 80053; 84484; 85025; 93005

== ENCOUNTER 2021-06-29 23:49 | Emergency (ER) | payer SELFPAY ==
[2021-06-30 00:43] LABS: Bilirubin Negative (Negative); Blood, Urine Negative (Negative); Clarity Clear (Clear); Glucose, Urine (Dipstick) Normal (Negative); Ketone, Urine Negative (Negative); Leukocyte Negative Leu/uL (Negative); Nitrite Negative (Negative); Protein, Urine (Dipstick) Negative (Neg-Trace); Specific Gravity, Urine 1.003 (1.002-1.036); Urobilinogen Normal mg/dL (Less than 2); pH, Urine 6.5 (5.0-9.0)
[2021-06-30 00:45] LABS: Pregnancy Test - Urine (BHCG) Negative (Negative); Pregu Control Background? CLEAR/WHITE (CLR/WHITE); Pregu Control Bar Appear? YES (CONTROL BAR); Specific Gravity 1.003 (1.002-1.036)
[2021-06-30] MEDS ORDERED: Lidocaine Viscous Sol 2% 15 ml UD Cup ONE (01:03)
[2021-06-30] MEDS ORDERED: Mag-Al 1200 mg/1200 mg/30 ML UDCUP ONE (01:03)
[2021-06-30 01:25] LABS: Hemoglobin 13.9 g/dL (12.0-16.0); Mean Corpuscular HGB CONC 34.5 g/dL (32.0-36.0); Mean Corpuscular Hemoglobin 27.5 pg (27.0-31.0); Mean Corpuscular Volume 79.8 fL (78.0-98.0); Mean Platelet Volume 7.8 fL (7.4-10.4); Platelet Count 295 thou/uL (130-400); RBC Distribution Width 12.9 % (11.5-14.5); Red Blood Cell (RBC) Count 5.07 mill/uL (4.20-5.40); White Blood Cell (WBC) Count 6.6 thou/uL (4.8-10.8)
[2021-06-30 01:42] LABS: Band 1 % (5-11); Eosinophils 1 % (0-10); Lymphocytes 51 % (21-51); MDiff Complete? YES; Monocytes 2 % (0-10); Neutrophil 41 % (42-75); Platelet Morphology Comment Appears Adequate; RBC Morphology Normal; Reactive Lymphocytes 4 % (0-10)
[2021-06-30 01:46] LABS: Albumin 4.4 g/dL (3.5-5.0); Alkaline Phosphatase 91 U/L (40-110); Anion Gap 12 mmol/L (10-20); BUN (Urea Nitrogen) 5 mg/dL (7.0-18.7); Bilirubin, Total 0.3 mg/dL (0.2-1.2); Calc. Creatinine Clearance 0 mL/min (70-130); Calcium 9.2 mg/dL (7.8-10.44); Carbon Dioxide 25 mmol/L (22-29); Chloride 107 mmol/L (98-107); Globulin 3.5 g/dL (2.4-3.5); Glucose 119 mg/dL (70-105); Potassium 3.7 mmol/L (3.5-5.1); Protein, Total 7.9 g/dL (6.0-8.3); Sodium 140 mmol/L (136-145)
[2021-06-30 01:47] LABS: ALT (SGPT) 22 U/L (8-55); AST (SGOT) 19 U/L (5-34); Lipase 41 U/L (8-78)
== END 2021-06-30 02:13 | disposition home or self-care (01) ==
LOC: ERS 23:49
DX: K21.9 Gastro-esophageal reflux disease without esophagitis (principal); E11.9 Type 2 diabetes mellitus without complications; I10 Essential (primary) hypertension; Z79.84 Long term (current) use of oral hypoglycemic drugs
CPT/HCPCS: 36415; 80053; 81003; 81025; 83690; 85025; 99284

== ENCOUNTER 2022-06-11 16:30 | Observation (INO) | payer SELFPAY ==
[2022-06-11 17:23] LABS: #Basophils 0.1 thou/uL (0.0-0.2); #Eosinphils 0.1 thou/uL (0.0-0.7); #Lymphocytes 3.9 thou/uL (1.20-3.40); #Monocytes 0.5 thou/uL (0.11-0.59); #Neutrophils 3.4 thou/uL (1.40-6.50); %Basophils 1.2 % (0.0-1.0); %Eosinophils 1.5 % (0.0-10.0); %Lymphocytes 49.4 % (21.0-51.0); %Monocytes 5.6 % (0.0-10.0); %Neutrophils 42.3 % (42.0-75.0); Hemoglobin 13.4 g/dL (12.0-16.0); Mean Corpuscular HGB CONC 33.6 g/dL (32.0-36.0); Mean Corpuscular Volume 77.4 fL (78.0-98.0); Mean Platelet Volume 7.2 fL (7.4-10.4); Platelet Count 313 thou/uL (130-400); RBC Distribution Width 13.9 % (11.5-14.5); Red Blood Cell (RBC) Count 5.15 mill/uL (4.20-5.40)
[2022-06-11 17:31] LABS: BHCG - Serum Negative (NEGATIVE); Pregs Control Background? CLEAR/WHITE (CLR/WHITE); Pregs Control Bar Appear? YES (CONTROL BAR)
[2022-06-11 17:51] LABS: ALT (SGPT) 23 U/L (8-55); AST (SGOT) 18 U/L (5-34); Albumin 4.5 g/dL (3.5-5.0); Alkaline Phosphatase 78 U/L (40-110); Anion Gap 15 mmol/L (10-20); BUN (Urea Nitrogen) 6 mg/dL (7.0-18.7); Bilirubin, Total 0.4 mg/dL (0.2-1.2); Calc. Creatinine Clearance 0 mL/min (70-130); Calcium 9.2 mg/dL (7.8-10.44); Carbon Dioxide 21 mmol/L (22-29); Chloride 107 mmol/L (98-107); Estimated GFR 113; Globulin 3.4 g/dL (2.4-3.5); Glucose 133 mg/dL (70-105); Lipase 38 U/L (8-78); Potassium 3.5 mmol/L (3.5-5.1); Protein, Total 7.9 g/dL (6.0-8.3); Sodium 139 mmol/L (136-145)
[2022-06-11] MEDS ORDERED: Ketorolac Tromethamine 30 MG/ML VIAL ONE (18:50)
[2022-06-11 21:11] LABS: Bilirubin Negative (Negative); Blood, Urine Negative (Negative); Clarity Clear (Clear); Glucose, Urine (Dipstick) Normal (Negative); Ketone, Urine 10 mg/dL (Negative); Leukocyte 25 Leu/uL (Negative); Nitrite Negative (Negative); Protein, Urine (Dipstick) Negative (Neg-Trace); RBC/HPF 0-3 HPF (0-3); Specific Gravity, Urine 1.008 (1.002-1.036); Squamous Epithelial 0-3 HPF (0-3); Urobilinogen Normal mg/dL (Less than 2); WBC/HPF 0-3 HPF (0-3); pH, Urine 7.5 (5.0-9.0)
[2022-06-11 21:12] LABS: Bacteria/HPF 1+ HPF (None Seen)
[2022-06-11] MEDS ORDERED: Piperacillin/Tazobactam 4.5 GM VIAL ONE (22:10)
[2022-06-11] MEDS ORDERED: Ketorolac Tromethamine 30 MG/ML VIAL IVP PRN (23:24)
[2022-06-12 00:17] VITALS: BMI 23.3
[2022-06-12] MEDS: Sodium Chloride 0.9% 1,000 ML IV SCH ×2 (00:20→10:34)
[2022-06-12 00:27] LABS: SARS-CoV-2 NAA Rapid Test Not Detected (NotDetected)
[2022-06-12] MEDS ORDERED: Ondansetron PF 4 MG/2 ML Vial ONE ×2 (10:05→12:16)
[2022-06-12] MEDS ORDERED: Iopamidol 15 ML ONE (11:16)
[2022-06-12] MEDS ORDERED: Bupivacaine HCl 0.5%/Epinephrine 1:200,000/PF 30 ml Vial ONE (11:16)
[2022-06-12] MEDS ORDERED: Ondansetron PF 4 MG/2 ML Vial IVP PRN (11:20)
[2022-06-12] MEDS ORDERED: Promethazine HCl 25 MG/ML VIAL IM PRN ×2 (11:20→14:21)
[2022-06-12] MEDS ORDERED: Mag-Al 1200 mg/1200 mg/30 ML UDCUP PO PRN (11:20)
[2022-06-12] MEDS ORDERED: Calcium Carbonate 500 MG ChewTAB PO PRN (11:20)
[2022-06-12] MEDS ORDERED: hydrALAZINE 20 MG/ML VIAL SLOW IVP PRN (11:20)
[2022-06-12] MEDS ORDERED: Morphine 2 MG/ML VIAL SLOW IVP PRN (11:20)
[2022-06-12] MEDS ORDERED: HumaLOG 300 UNITS/3 ML VIAL SC PRN (11:20)
[2022-06-12] MEDS ORDERED: Dextrose 50% Abboject 50 ML SYRINGE SLOW IVP PRN (11:20)
[2022-06-12] MEDS ORDERED: Dextrose 5% in Water 1,000 ML IV PRN (11:20)
[2022-06-12] MEDS ORDERED: CEFAZOLIN 2 GM VIAL ONE (11:28)
[2022-06-12] MEDS ORDERED: Sodium Chloride 0.9% 100 ML ONE (11:28)
[2022-06-12] MEDS ORDERED: Famotidine/PF 20 mg/2ml Vial ONE (11:30)
[2022-06-12] MEDS ORDERED: fentaNYL Citrate/PF 100 MCG/2 ML SYRINGE ONE (11:41)
[2022-06-12] MEDS ORDERED: Ketorolac Tromethamine 30 MG/ML VIAL ONE (12:16)
[2022-06-12] MEDS ORDERED: Rocuronium Bromide 10 MG/ML (10ML VIAL) ONE (12:16)
[2022-06-12] MEDS ORDERED: Metoprolol Tartrate 5 MG/5 ML VIAL ONE (12:16)
[2022-06-12] MEDS ORDERED: PROPOFOL 200 MG/20 ML VIAL ONE (12:16)
[2022-06-12] MEDS ORDERED: NEOSTIGMINE 3 MG/3 ML SYR 3 MG/3 ML SYRINGE ONE (12:16)
[2022-06-12] MEDS ORDERED: Lidocaine 1% MPF 2 ML VIAL ONE (12:16)
[2022-06-12] MEDS ORDERED: Glycopyrrolate 0.2 MG/ML 5 ML SYRINGE ONE (12:16)
[2022-06-12] MEDS ORDERED: Succinylcholine 200 MG/10 ml SYRINGE FS ONE (12:16)
[2022-06-12] MEDS ORDERED: ePHEDrine 50 MG/ML VIAL ONE (12:16)
[2022-06-12] MEDS ORDERED: Dexamethasone 20 MG/5 ML VIAL ONE (12:16)
[2022-06-12] MEDS ORDERED: Iopamidol 30 ML ONE (13:34)
[2022-06-12] MEDS ORDERED: Ondansetron HCl/PF 4 MG/2 ML Vial IVP PRN (14:21)
[2022-06-12] MEDS ORDERED: Promethazine HCl 25 MG/ML VIAL IVPB PRN (14:21)
[2022-06-12] MEDS ORDERED: Fentanyl 100 MCG/2 ML VIAL ONE (14:30)
[2022-06-12] MEDS: D5 1/2 NS w/20 mEq KCL 1,000 ML IV SCH ×3 (17:15→21:01)
[2022-06-12] MEDS: HYDROcodone/Acetaminophen 10/325 mg Tablet PO PRN ×2 (17:15→23:15)
[2022-06-13 01:39] VITALS: BP 101/62; TEMP 98
[2022-06-13] MEDS ORDERED: Pioglitazone HCl 15 MG TAB PO SCH (09:00)
[2022-06-13] MEDS ORDERED: FLUoxetine HCl 20 MG CAP PO SCH (09:00)
== END 2022-06-13 09:30 | disposition home or self-care (01) ==
LOC: ERS 16:30 → SJJU 23:17
PROVIDERS: ADMIT Surgery; ATTEND Surgery
PROC: 0FT44ZZ Resection of Gallbladder, Percutaneous Endoscopic Approach (ICD-10-PCS; principal; 2022-06-12)
PROC: BF101ZZ Fluoroscopy of Bile Ducts using Low Osmolar Contrast (ICD-10-PCS; 2022-06-12)
DX: K80.12 Calculus of gallbladder with acute and chronic cholecystitis without obstruction (principal); K83.8 Other specified diseases of biliary tract; K76.0 Fatty (change of) liver, not elsewhere classified; E11.9 Type 2 diabetes mellitus without complications; Z79.84 Long term (current) use of oral hypoglycemic drugs; Z79.899 Other long term (current) drug therapy; Z20.822 Contact with and (suspected) exposure to COVID-19
CPT/HCPCS: 36415; 47532; 76705; 80053; 81003; 81015; 83690; 84703; 85025; 88304; 96365; 96375; 96376; C1713; G0378; J0690; J1100; J1885; J2405; J2543; J2704; J3010; J3480; J3490; J7050; Q9967; S0028; U0002